=== PATIENT | female | born 1975 | race Caucasian/White ===

== ENCOUNTER 2025-07-20 04:20 | Emergency (ER) | payer MEDICAID, SELFPAY ==
[2025-07-20 04:22] VITALS: PULSE 109; RESP 18; O2SAT 98; BMI 81.1
[2025-07-20 04:49] VITALS: BP 165/104; PULSE 105; RESP 17; TEMP 36.9; O2SAT 97
--- NOTE | 2025-07-20 05:09 | PD.EDRME ---
Rapid Medical Screening Exam RME Arrival date/time: 07/20/25 04:20 50-year-old female reports with complaint of lower back pain pelvic pressure and possible UTI Chief Complaint: General Adult/Misc Complain Time Seen by Provider: 07/20/25 04:32 Vital signs: Vital Signs Temperature 98.5 F 07/20/25 04:49 Pulse Rate 105 H 07/20/25 04:49 Respiratory Rate 17 07/20/25 04:49 Blood Pressure 165/104 H 07/20/25 04:49 Pulse Oximetry (%) 97 07/20/25 04:49 Oxygen Delivery Method Room Air 07/20/25 04:49 Exam: ? Clinical Impression: ?
[2025-07-20 05:47] LABS: Collection Type, Urine Clean Catch
[2025-07-20 06:06] LABS: Amorphous Crystals,Urine Present (Absent); Bilirubin,Urine 1+ (Negative); Blood,Urine Trace (Negative); Clarity,Urine Turbid (Clear/Hazy); Color,Urine Drk-Yellow (Lt Yel-Yel); Culture Indicated,Urine Contaminated; Glucose, Urine Negative (Negative); Hyaline Casts,Urine 1 /hpf (0-1); Ketones,Urine Trace (Negative); Leukocyte Esterase,Urine Positive (Negative); Nitrite,Urine Negative (Negative); PH,Urine 6.0 (5.0-7.0); Protein,Urine 2+ (Neg - Trace); RBC,Urine 8 /hpf (0-3); Specific Gravity,Urine 1.034 (1.001-1.035); Squamous Epithelial Cell,Urine 16 /hpf (0-5); Urobilinogen,Urine OVER mg/dL (0.0-1.0); WBC,Urine 12 /hpf (0-5)
--- NOTE | 2025-07-20 06:38 | XR_ITS ---
Examination: CT abdomen and pelvis without contrast. Coronal 3-D reconstructions. Sagittal 2-D reconstructions. Date and time of exam: July 20, 2025, 0829 hours, comparison November 26, 2022 INDICATIONS: Generalized abdominal pain bilateral flank pain today CTDI: vol (mGy): 11.7 DLP: (mGycm): 651 Technique: Axial images of the abdomen have been obtained, 3 mm slice thickness Intravenous contrast material has not been administered. Low dose protocols were performed. One or more of the following dose reduction techniques were used; automated exposure control, adjustment of the mA and/or KV according to patient size, use of iterative reconstruction technique. Findings: No focal liver or splenic lesions No gallstones No pancreatic mass No renal or ureteral calculi, no hydronephrosis Normal appendix No bowel obstruction Anteverted uterus Contracted urinary bladder Advanced degenerative disc disease L1-L2, L2-L3, with moderate lumbar spondylosis Prominent lumbar levoscoliosis IMPRESSION: No renal or ureteral calculi, no hydronephrosis Normal appendix No bowel obstruction
[2025-07-20 07:37] LABS: Basophils # (Auto) 0.1 Thou/mm3 (0.0-0.2); Basophils % (Auto) 1 % (0-2.5); Eosinophils # (Auto) 0.4 Thou/mm3 (0.0-0.5); Eosinophils % (Auto) 4 % (0-10); Hematocrit 37.9 % (36.0-46.0); Hemoglobin 13.3 g/dL (12.0-16.0); Immature Granulocytes Auto 0.05 Thou/mm3 (0.00-0.00); Lymphocytes # (Auto) 1.8 Thou/mm3 (1.0-4.8); Lymphocytes % (Auto) 17 % (10-50); Mean Corpuscular HGB Conc 35.1 g/dl (31.0-37.0); Mean Corpuscular Hemoglobin 33.6 pg (25.0-35.0); Mean Corpuscular Volume 96 fL (80-100); Monocytes # (Auto) 1.2 Thou/mm3 (0.0-0.8); Monocytes % (Auto) 11 % (0-12); Neutrophils # (Auto) 7.2 Thou/mm3 (1.8-7.7); Neutrophils % (Auto) 67 % (37-80); Nucleated Red Blood Cell # 0.00 Thou/mm3 (0.00-0.00); Nucleated Red Blood Cell % 0 /100 WBC (0); Platelet Count 230 Thou/mm3 (140-440); RDW Standard Deviation 42.3 fL (36.4-46.3); Red Blood Count 3.96 Miln/mm3 (4.00-5.20); White Blood Count 10.7 Thou/mm3 (3.6-11.0)
[2025-07-20 07:39] LABS: Alanine Aminotransferase 43 U/L (10-49); Albumin, Serum 3.7 gm/dL (3.5-5.0); Albumin/Globulin Ratio 1.5 (1.2-2.2); Alkaline Phosphatase 109 U/L (46-116); Anion Gap 8 (7-16); Aspartate Amino Transferase 75 U/L (0-34); BUN/Creatinine Ratio 11 Ratio (12-20); Bilirubin,Total 1.5 mg/dL (0.3-1.2); Blood Urea Nitrogen 8 mg/dL (9-23); Calcium 9.2 mg/dL (8.3-10.6); Calcium (Corrected) 9.4 mg/dL (8.5-10.1); Carbon Dioxide 30.2 mMol/L (20.0-31.0); Chloride 104 mMol/L (98-107); Creatinine (Component) 0.7 mg/dL (0.6-1.3); Estimated Creatinine Clearance 198.8 mL/min (>60); Globulin 2.4 gm/dL (2.3-3.5); Glucose 107 mg/dL (74-106); Lipase 24 U/L (12-53); Osmolality,Calculated 281 (275-295); Potassium 3.5 mMol/L (3.4-5.1); Sodium 142 mMol/L (136-145); Total Protein 6.1 gm/dL (5.7-8.2); eGFR > 60 See Note
[2025-07-20 08:11] LABS: HCG,Qualitative Serum Negative
--- NOTE | 2025-07-20 09:18 | EDNOTE_ITS ---
<Statement entered by Blanche Laird MD - 07/20/25 16:24> As co-signing physician, I was present and available for consult prn. I concur with the plan and care as documented by the midlevel provider. ED General RME/HPI General Chief complaint: General Adult/Misc Complain Stated complaint: BILAT FLANK PAIN Time Seen by Provider: 07/20/25 04:32 Arrival date/time: 07/20/25 04:20 50-year-old female with medical history significant for methamphetamine abuse last use yesterday per patient reports with concerns for dysuria and back pain patient reports no chest pain or shortness of breath Limitations: no limitations RME / HPI RME / HPI narrative: 07/20/25 04:20 50-year-old female reports with complaint of lower back pain pelvic pressure and possible UTI Exam: ? Impression: ? Related Data Home Medications ?Medication ?Instructions ?Recorded ?Confirmed citalopram 20 mg tablet 20 mg PO DAILY 09/09/2210/01 diclofenac sodium 1 % topical gel 4 g topical BID 10/0109/09/22 loratadine 10 mg tablet 10 mg PO BID 09/09/22 Previous Rx's ?Medication ?Instructions ?Recorded amlodipine 5 mg tablet 5 mg PO QDAY #30 tabs atorvastatin 40 mg tablet 40 mg PO QPM #30 tabs cefuroxime axetil 500 mg tablet 500 mg PO BID #14 tabs 03/01/23 ciprofloxacin HCl 500 mg tablet 500 mg PO BID 7 days # 14 tabs 07/20/25 ibuprofen 600 mg tablet 600 mg PO Q6H #30 tabs 07/20 Allergies Allergy/AdvReac Type Severity Reaction Status Date / Time BRIELLE Inhibitors Allergy Severe Anaphylaxis Verified 07/20/25 04:26 Review of Systems Review of Systems Systems Reviewed: All systems reviewed, normal except as documented Constitutional Constitutional: Reports system reviewed and no additional complaints, except as documented, Denies fever(s) and Denies headache(s) Eyes Eyes: Reports system reviewed and no additional complaints, except as documented and Denies blurry vision ENT Ears, Nose, Mouth, and Throat: Reports system reviewed and no additional complaints, except as documented, Denies headache(s), Denies nasal congestion and Denies nasal discharge Cardiovascular Cardiovascular: Reports system reviewed and no additional complaints, except as documented, Denies chest pain and Denies dyspnea Respiratory Respiratory: Reports system reviewed and no additional complaints, except as documented, Denies chest congestion, Denies cough and Denies dyspnea Gastrointestinal Gastrointestinal: Reports system reviewed and no additional complaints, except as documented and Denies abdominal pain Genitourinary Genitourinary: Reports system reviewed and no additional complaints, except as documented and Denies abnormal vaginal bleeding Musculoskeletal Musculoskeletal: Reports system reviewed and no additional complaints, except as documented and Reports back pain Integumentary/Breasts Skin/Breast: Reports system reviewed and no additional complaints, except as documented and Denies rash Neurologic Neurologic: Reports system reviewed and no additional complaints, except as documented, Reports as per HPI and Denies headache(s) Past Medical History Past Medical History CARDIAC: Positive Deep Vein Thrombosis and Hypertension; Negative Congestive Heart Failure RESPIRATORY: Negative Chronic Obstructive Pulmonary Disease (COPD) GENITOURINARY: Negative Renal Disease ENDOCRINE: Negative Diabetes Mellitus Type 1 or Diabetes Mellitus Type 2 Social History SMOKING STATUS: Current every day smoker SUBSTANCE USE: amphetamines ED Exam General Limitations: Present no limitations General appearance: Present alert and in no apparent distress Head Head exam: Present atraumatic, normocephalic and normal inspection Eye Eye exam: Present normal appearance, PERRL and EOMI; Absent conjunctival injection ENT ENT exam: Present normal exam, normal oropharynx and mucous membranes moist Neck Neck exam: Present normal inspection, full ROM and trachea midline Chest Chest inspection: Present normal inspection and symmetric chest wall rise Respiratory Respiratory exam: Present normal lung sounds bilaterally; Absent respiratory distress, wheezes, stridor, accessory muscle use or prolonged expiratory phase Cardiovascular Cardiovascular exam: Present regular rate, normal rhythm and normal heart sounds Abdominal Exam Abdominal exam: Present soft and normal bowel sounds; Absent distention, tenderness, guarding, rebound or rigidity Extremities Exam Extremities exam: Present normal inspection and full ROM Back Exam Back exam: Present normal inspection and full ROM Neurological Exam Neurological exam: Present alert, oriented X3 and CN II-XII intact Psychiatric Psychiatric exam: Present normal affect and normal mood Skin Skin exam: Present warm, dry, intact and normal color Course Quality Measures none Orders Category Date Time Status CT abdomen pelvis wo con Stat Exams 07/20/25 06:38 Completed CBC Stat Lab 07/20/25 07:08 Completed Comprehensive Metabolic Panel Stat Lab 07/20/25 07:08 Completed HCG,Qualitative Serum Stat Lab 07/20/25 07:08 Completed Lipase Stat Lab 07/20/25 07:08 Completed UA, C/S IF [Urinalysis, C/S if Indicated] Stat Lab 07/20/25 05:36 Completed Vital Signs Vital signs: Vital Signs Temperature 98.5 F 07/20/25 04:49 Pulse Rate 105 H 07/20/25 04:49 Respiratory Rate 17 07/20/25 04:49 Blood Pressure 165/104 H 07/20/25 04:49 Pulse Oximetry (%) 97 07/20/25 04:49 Oxygen Delivery Method Room Air 07/20/25 04:49 O2 saturation 97% on room air within normal limits Discharge Plan Plan Patient Disposition: HOME (Self Care) Discharge Disposition comment: Stable Prescriptions/Referrals Prescriptions/Med Rec: New ciprofloxacin HCl 500 mg tablet 500 mg PO BID 7 Days Qty: 14 0RF ibuprofen 600 mg tablet 600 mg PO Q6H Qty: 30 0RF No Action amlodipine 5 mg tablet 5 mg PO QDAY Qty: 30 0RF atorvastatin 40 mg tablet 40 mg PO QPM Qty: 30 0RF citalopram 20 mg tablet 20 mg PO DAILY loratadine 10 mg tablet 10 mg PO BID Patient Comments: TAKE 1 TABLET BY MOUTH EVERY DAY diclofenac sodium 1 % gel 4 g TOPICAL BID cefuroxime axetil 500 mg tablet 500 mg PO BID Qty: 14 0RF Referrals: Donn Bajwa PA-C [Primary Care Provider] - In 1 week Problem List Clinical Impression: Dysuria, Methamphetamine abuse Patient/Caregiver Discharge Instructions Education Materials: Dysuria Additional Instructions: Please follow up with your primary care doctor in the next 24-48hrs for any worsening symptoms return here immediately Please follow with your PCP for STD testing Print Language: [place] Stand Alone Forms: Gill Award Info., Patient Portal Info Letter PA/SUPER[employer] Supervising Physician PA/SALONI Supervising Physician: Dr. laird MDM Narrative MDM hospital course (for use when minimal MDM required): 50-year-old female with medical history significant for methamphetamine abuse last use yesterday per patient reports with concerns for dysuria and back pain patient reports no chest pain or shortness of breath On exam patient hemodynamically stable does not appear ill or toxic Lab work and imaging obtained no acute emergent findings noted UA is contaminated by patient fact the patient has dysuria patient be treated with course of antibiotics Patient discharged home in no distress to follow-up with primary care doctor in the next 24 to 48 hours and for any worsening symptoms to return to the ER immediately Clinical Information Provided by: patient Medical Records reviewed [facility] Meds/Rx considered, not ordered None Labs/Rad/Tests considered, not ordered Describe: Obtained Chronic Illness/Social Conditions which may negatively complicate care or outcome(s)-explain: Homeless and Mental health EKG EKG not done Labs Labs: interpreted by me Lab(s) Interpretation(s): Obtained Imaging Imaging interpretation: see narrative above Medication Administration(s) Rx given Diagnosis Differential Diagnosis ED Complaint MDM: Pyelonephritis, UTI, cystitis, STD
[2025-07-20 11:00] VITALS: BP 132/79; PULSE 100; RESP 19; TEMP 36.7; O2SAT 96
== END 2025-07-20 11:03 | disposition home or self-care (01) ==
PROVIDERS: Nurse Practitioner Primary Care; Physician Assistant; Emergency Provider Emergency Medicine; PCP Physician Assistant Medical
DX: R30.0 Dysuria (principal); F15.10 Other stimulant abuse, uncomplicated
CPT/HCPCS: 36415; 74176; 80053; 81001; 83690; 84703; 85025; 99283